=== PATIENT | female | born 1995 | race American Indian/Alaskan Native ===

== ENCOUNTER 2020-10-18 23:35 | Emergency (ER) | payer MEDICAID ==
[2020-10-18] MEDS ORDERED: ACETAMINOPHEN 500 MG TAB PO ONE (23:48)
[2020-10-18 23:57] VITALS: BP 143/72
[2020-10-19 00:12] LABS: Basophils % (Auto) 0.4 % (0.0-1.8); Eosinophils # (Auto) 0.2 K/mm3 (0.0-0.4); Eosinophils % (Auto) 3.7 % (0.0-4.3); Hematocrit 33.8 % (30.3-42.9); Hemoglobin 11.6 gm/dl (10.1-14.3); Lymphocytes # (Auto) 1.9 K/mm3 (1.2-5.4); Mean Corpuscular HGB Conc 34 % (30-34); Mean Corpuscular Volume 84 fl (79-97); Monocytes # (Auto) 0.6 K/mm3 (0.0-0.8); Monocytes % (Auto) 9.2 % (0.0-7.3); Platelet Count 296 K/mm3 (140-440); Red Blood Count 4.05 M/mm3 (3.65-5.03); Red Cell Distribution Width 17.1 % (13.2-15.2)
[2020-10-19 00:33] LABS: Alanine Aminotransferase 8 units/L (7-56); Albumin 4.2 g/dL (3.9-5); Blood Urea Nitrogen 8 mg/dL (7-17); Calcium 9.1 mg/dL (8.4-10.2); Hemolysis Index 5
[2020-10-19 00:37] LABS: BUN/Creatinine Ratio 13
[2020-10-19 00:48] LABS: Bilirubin,Urine NEG (Negative); Blood,Urine MOD (Negative); Color,Urine Yellow (Yellow); Mucus,Urine FEW /HPF; Protein,Urine <15 mg/dL mg/dL (Negative); Urobilinogen,Urine < 2.0 mg/dL (<2.0)
--- NOTE | 2020-10-19 02:13 | Ultrasound Report ---
EXAMINATION: Obstetrical Ultrasound INDICATION: Pelvic pain and vaginal spotting in early COMPARISON: None FINDINGS: The uterus is mildly enlarged measuring 11.0 x 7.1 x 7.2 cm. There is a single, living intrauterine . [place]-rump length = 2.7 cm = 9 weeks, 3 day(s). heart rate is 172 beats per minute. The bilateral adnexal regions appear within normal limits. There is no free pelvic fluid. IMPRESSION: 1. Single living intrauterine with estimated gestational age of 9 weeks 3 days. Signer Name: Geni Linares MD Signed: 10/19/2020 2:09 AM Workstation Name: [id number]
--- NOTE | 2020-10-19 02:14 | Ultrasound Report ---
EXAMINATION: Obstetrical Ultrasound INDICATION: Pelvic pain and vaginal spotting in early COMPARISON: None FINDINGS: The uterus is mildly enlarged measuring 11.0 x 7.1 x 7.2 cm. There is a single, living intrauterine . [place]-rump length = 2.7 cm = 9 weeks, 3 day(s). heart rate is 172 beats per minute. The bilateral adnexal regions appear within normal limits. There is no free pelvic fluid. IMPRESSION: 1. Single living intrauterine with estimated gestational age of 9 weeks 3 days. Signer Name: Geni Linares MD Signed: 10/19/2020 2:09 AM Workstation Name: [id number]
--- NOTE | 2020-10-19 02:19 | Emergency Department Report ---
ED Female HPI - General Chief complaint: Vaginal Bleeding Stated complaint: 9 WEEKS INTENSE PAIN & SPOTTING Time Seen by Provider: 10/19/20 02:08 Source: patient Mode of arrival: Ambulatory Limitations: No Limitations - History of Present Illness Initial comments: pt is a 25 y/o G2, who is currently 9 weeks , presents for vaginal spotting x2 days. States using 1-2 pads daily. There is no fevers there is no chills. Patient has [facility], there is no nausea vomiting patient is tolerating p.o. intake at this time. pt denies other exacerbating or relieving factors. MD Complaint: vaginal bleeding - Related Data Previous Rx's Medication Instructions Recorded Last Taken Type Butalb/Acetaminophen/Caffeine 1 cap PO Q8HR #30 cap 11/24/19 Unknown Rx [Fioricet 50-300-40 mg CAP] Acetaminophen [Tylenol] 650 mg PO Q6HR PRN #30 tablet 10/19/20 Unknown Rx cephALEXin [Keflex] 500 mg PO BID 7 Days #14 cap 10/19/20 Unknown Rx Allergies Allergy/AdvReac Type Severity Reaction Status Date / Time No Known Allergies Allergy Unverified 11/24/19 13:31 ED Review of Systems ROS: Stated complaint: 9 WEEKS INTENSE PAIN & SPOTTING Other details as noted in HPI Constitutional: denies: chills, fever Eyes: denies: eye pain, eye discharge, vision change ENT: denies: ear pain, throat pain Respiratory: denies: cough, shortness of breath, wheezing Cardiovascular: denies: chest pain, palpitations Endocrine: no symptoms reported Gastrointestinal: abdominal pain. denies: nausea, vomiting, diarrhea, constipation Genitourinary: as per HPI, frequency. denies: urgency, dysuria, hematuria, discharge Musculoskeletal: as per HPI. denies: back pain Skin: denies: rash, lesions Neurological: denies: headache, weakness, paresthesias Psychiatric: denies: anxiety, depression Hematological/Lymphatic: denies: easy bleeding, easy bruising ED Past Medical Hx - Past Medical History Additional medical history: pre-eclampsia; cardiomyopathy after - Social History Smoking Status: Never Smoker - Medications Home Medications: Home Medications Medication Instructions Recorded Confirmed Last Taken Type Butalb/Acetaminophen/Caffeine 1 cap PO Q8HR #30 cap 11/24/19 Unknown Rx [Fioricet 50-300-40 mg CAP] Acetaminophen [Tylenol] 650 mg PO Q6HR PRN #30 tablet 10/19/20 Unknown Rx cephALEXin [Keflex] 500 mg PO BID 7 Days #14 cap 10/19/20 Unknown Rx ED Physical Exam - General Limitations: No Limitations General appearance: alert, in no apparent distress - Head Head exam: Present: atraumatic, normocephalic - Eye Eye exam: Present: normal appearance, EOMI Pupils: Present: normal accommodation - ENT ENT exam: Present: mucous membranes moist - Neck Neck exam: Present: normal inspection - Respiratory Respiratory exam: Present: normal lung sounds bilaterally. Absent: respiratory distress, wheezes - Cardiovascular Cardiovascular Exam: Present: regular rate, normal rhythm, normal heart sounds. Absent: systolic murmur, diastolic murmur, rubs, gallop - GI/Abdominal GI/Abdominal exam: Present: soft, normal bowel sounds. Absent: distended, tenderness - Rectal Rectal exam: Present: deferred - External exam: Present: other (deferred per patient ) - Extremities Exam Extremities exam: Present: normal inspection, full ROM. Absent: tenderness - Back Exam Back exam: Present: normal inspection, full ROM. Absent: CVA tenderness (R), CVA tenderness (L) - Neurological Exam Neurological exam: Present: alert, oriented X3, CN II-XII intact, normal gait - Psychiatric Psychiatric exam: Present: normal affect, normal mood - Skin Skin exam: Present: warm, dry, intact, normal color. Absent: rash ED Course Vital Signs 10/18/20 23:55 Temperature 98.4 F Pulse Rate 76 Respiratory 16 Rate Blood Pressure 143/72 [Right] O2 Sat by Pulse 100 Oximetry ED Medical Decision Making - Lab Data Result diagrams: 10/18/20 23:52 10/18/20 23:52 Labs 10/18/20 10/18/20 10/18/20 23:52 23:52 23:52 WBC 6.7 RBC 4.05 Hgb 11.6 Hct 33.8 MCV 84 MCH 29 MCHC 34 RDW 17.1 H Plt Count 296 Lymph % (Auto) 29.0 Barnes % (Auto) 9.2 H Eos % (Auto) 3.7 Baso % (Auto) 0.4 Lymph # (Auto) 1.9 Barnes # (Auto) 0.6 Eos # (Auto) 0.2 Baso # (Auto) 0.0 Seg Neutrophils % 57.7 Seg Neutrophils # 3.8 Sodium 135 L Potassium 3.9 Chloride 100.6 Carbon Dioxide 25 Anion Gap 13 BUN 8 Creatinine 0.6 Estimated GFR > 60 BUN/Creatinine Ratio 13 Glucose 88 Calcium 9.1 Total Bilirubin 0.30 AST 15 ALT 8 Alkaline Phosphatase 45 Total Protein 6.9 Albumin 4.2 Albumin/Globulin Ratio 1.6 HCG, Quant 27347 H Urine Color Urine Turbidity Urine pH Ur Specific [place] Urine Protein Urine Glucose (UA) Urine Ketones Urine Blood Urine Nitrite Urine Bilirubin Urine Urobilinogen Ur Leukocyte Esterase Urine WBC (Auto) Urine RBC (Auto) U Epithel Cells (Auto) Urine Mucus Blood Type 10/18/20 10/19/20 23:52 00:25 WBC RBC Hgb Hct MCV MCH MCHC RDW Plt Count Lymph % (Auto) Barnes % (Auto) Eos % (Auto) Baso % (Auto) Lymph # (Auto) Barnes # (Auto) Eos # (Auto) Baso # (Auto) Seg Neutrophils % Seg Neutrophils # Sodium Potassium Chloride Carbon Dioxide Anion Gap BUN Creatinine Estimated GFR BUN/Creatinine Ratio Glucose Calcium Total Bilirubin AST ALT Alkaline Phosphatase Total Protein Albumin Albumin/Globulin Ratio HCG, Quant Urine Color Yellow Urine Turbidity Clear Urine pH 6.0 Ur Specific [place] 1.018 Urine Protein <15 mg/dl Urine Glucose (UA) Neg Urine Ketones Neg Urine Blood Mod Urine Nitrite Neg Urine Bilirubin Neg Urine Urobilinogen < 2.0 Ur Leukocyte Esterase Mod Urine WBC (Auto) 12.0 H Urine RBC (Auto) 3.0 U Epithel Cells (Auto) 3.0 Urine Mucus Few Blood Type O POSITIVE - Radiology Data Radiology results: report reviewed, image reviewed uS OB Sing IUP 9 weeks 2 days, FHR 172 bpm - Medical Decision Making Ultrasound OB single IUP at 9 weeks 2 days, FHR equals 1 7 2 bpm, UA positive for leukocytes white blood cells bacteria, H&H is normal, ABO O+ patient denies discharge denies possibility for STI plan treat for UTI during , patient will follow-up with [facility] in 2 to 3 days. Patient will return to ED should symptoms worsen. Patient verbalized agreement and understanding of discharge plan. Patient DC'd home in stable condition at this time. Critical care attestation.: If time is entered above; I have spent that time in minutes in the direct care of this critically ill patient, excluding procedure time. ED Disposition Clinical Impression: Threatened miscarriage in early UTI (urinary tract infection) during Qualifiers: Trimester: first trimester Qualified Code(s): O23.41 - Unspecified infection of urinary tract in , first trimester Disposition: TO HOME OR SELFCARE Is pt being admited?: No Does the pt Need Aspirin: No Condition: Stable Instructions: Urinary Tract Infection, Adult, [id number], Vaginal Bleeding During , First Trimester, [id number], Threatened Miscarriage Additional Instructions: Take medications as prescribed, follow-up with [facility] in 2 to 3 days. Return to emergency department should symptoms worsen. Prescriptions: Acetaminophen [Tylenol] 650 mg PO Q6HR PRN #30 tablet PRN Reason: Pain cephALEXin [Keflex] 500 mg PO BID 7 Days #14 cap Referrals: [facility] [Provider Group] - 3-5 Days Forms: Work/School Release Form(ED) Time of Disposition: 02:26
== END 2020-10-19 02:42 | disposition home or self-care (01) ==
LOC: ED 23:35
DX: O20.0 Threatened abortion (principal); O23.41 Unspecified infection of urinary tract in pregnancy, first trimester; Z3A.09 9 weeks gestation of pregnancy; Z79.899 Other long term (current) drug therapy
CPT/HCPCS: 36415; 76801; 76817; 80053; 81001; 84702; 85025; 86900; 86901; 87086

== ENCOUNTER 2020-11-30 22:44 | Emergency (ER) | payer MEDICAID | END 2020-11-30 22:50 | disposition left against medical advice (07) | LOC: ED 22:44 | DX: O26.892 Other specified pregnancy related conditions, second trimester (principal); Z3A.15 15 weeks gestation of pregnancy; Z53.21 Procedure and treatment not carried out due to patient leaving prior to being seen by health care provider ==

== ENCOUNTER 2021-04-29 21:06 | Outpatient (CLI) | payer MEDICAID ==
[2021-04-29 21:29] VITALS: BP 128/81
--- NOTE | 2021-04-29 23:39 | Ultrasound Report ---
ULTRASOUND OBSTETRIC LIMITED ULTRASOUND BIOPHYSICAL PROFILE INDICATION / CLINICAL INFORMATION: wellbeing. Clinical Gestational Age (GA) in weeks, days: 37, 2 TECHNIQUE: Transabdominal. COMPARISON: None available. FINDINGS: BREATHING MOVEMENT = 2 GROSS BODY MOVEMENT = 2 TONE = 2 QUALITATIVE AMNIOTIC FLUID VOLUME = 2 TOTAL BIOPHYSICAL SCORE = 8/8 HEART RATE (beats per minute): 153 AMNIOTIC FLUID INDEX (cm) = 13 (normal = 7-24 cm) PRESENTATION: Cephalic. Biparietal Diameter = 9.0 cm = 36, 3 weeks, days Head Circumference = 32.4 cm = 36, 5 weeks, days Abdominal Circumference = 31.0 cm = 34, 6 weeks, days Femur Length = 6.8 cm = 35, 0 weeks, days Average Ultrasound Age (AUA) = 35, 5 weeks, days Estimated Weight in grams (if calculated): 2639 Estimated Weight Growth Percentile (if calculated): 13 ADDITIONAL FINDINGS: None. IMPRESSION: 1. Biophysical Score = 8/8 2. Additional findings as above. Signer Name: Sven Cobb DO Signed: 04/29/2021 11:34 PM Workstation Name: [id number]
== END 2021-04-29 23:33 | disposition home or self-care (01) ==
LOC: TRG 21:06 → APU 21:08 → TRG 23:33
PROVIDERS: ATTEND Obstetrics & Gynecology Gynecology
DX: O36.8130 Decreased fetal movements, third trimester, not applicable or unspecified (principal); O26.893 Other specified pregnancy related conditions, third trimester; R10.2 Pelvic and perineal pain; Z3A.38 38 weeks gestation of pregnancy
CPT/HCPCS: 59025; 76816; 76819